=== PATIENT | female | born 1935 | race Caucasian/White ===

== ENCOUNTER 2016-10-25 13:01 | Emergency (ER) | payer MEDICARE, BC ==
[~2016-10-25] VITALS: Ht 152.4 cm; Wt 46.5 kg
[2016-10-25 13:03] VITALS: BP 115/73; PULSE 102; RESP 18; TEMP 97.6; O2SAT 97
[2016-10-25 13:40] VITALS: BP 133/72; PULSE 101; RESP 18; O2SAT 96
[2016-10-25] MEDS ORDERED: IPRASOL INH (13:48)
[2016-10-25] MEDS ORDERED: PROM12.54 PO (13:48)
[2016-10-25] MEDS ORDERED: FURO20TA PO (13:48)
[2016-10-25] MEDS ORDERED: ZYPR7.5T PO (13:48)
[2016-10-25] MEDS ORDERED: CYAN1TAB24 (13:48)
[2016-10-25] MEDS ORDERED: APIX5TAB PO (13:48)
[2016-10-25] MEDS ORDERED: CYMB60CA PO (13:48)
[2016-10-25] MEDS ORDERED: TEMA15CA PO (13:48)
[2016-10-25] MEDS ORDERED: LEVO75TA3 PO (13:48)
[2016-10-25] MEDS ORDERED: OXYC15TA PO (13:48)
[2016-10-25] MEDS ORDERED: LEVE500T11 PO (13:48)
[2016-10-25] MEDS ORDERED: VERA1TAB17 PO (13:48)
[2016-10-25] MEDS ORDERED: FOLI800T PO (13:48)
[2016-10-25] MEDS ORDERED: [UNRECOGNIZED DRUG - CODE] PO (13:48)
[2016-10-25] MEDS ORDERED: SOTA120T PO (13:48)
[2016-10-25] MEDS ORDERED: CHOL1CAP8 PO (13:48)
[2016-10-25] MEDS ORDERED: POTA-245 PO (13:48)
[2016-10-25] MEDS ORDERED: ATOR20TA15 PO (13:48)
[2016-10-25] MEDS ORDERED: MIRA50TA PO (13:48)
--- NOTE | 2016-10-25 13:58 | PD ---
HPI Chief Complaint: Fall Time Seen by Provider: 13:40 Travel History International Travel<30 days: No Contact w/Intl Traveler<30days: No Traveled to known affect area: No History of Present Illness HPI 80-year-old female complains of left knee pain. Patient fell 2 nights ago and hit the back of the head. Patient denies loss of consciousness. Patient denies any headache or neck pain. Patient denies any visual change. Patient denies any chest pain or shortness of breath. Patient denies abdominal pain. Patient complaining of persistent sharp pain localized to left knee. Patient denies any pain radiation. Patient states that the pain is worse with movement of the left knee joint. On a scale of 1-10 the pain is an 8. Patient has history of atrial fibrillation on Eliquis. PFSH Past Medical History Hx Anticoagulant Therapy: Yes (ELIQUIS) Anemia: Yes Atrial Fibrillation: Yes Depression: Yes High Cholesterol: Yes Diabetes: No Respiratory: Yes (COPD) Seizures: Yes Thyroid Disease: Yes Tetanus Vaccination: > 5 Years Influenza Vaccination: Yes ?: Not Past Surgical History Hysterectomy: Yes Social History Alcohol Use: No Tobacco Use: No Allergies-Medications (Allergen,Severity, Reaction): Coded Allergies: Penicillins (Verified Allergy, Unknown, 10/25/16) Sulfa (Sulfonamide Antibiotics) (Verified Allergy, Unknown, 10/25/16) ciprofloxacin (Verified Allergy, Unknown, 10/25/16) Reported Meds & Prescriptions Reported Meds & Active Scripts Active Reported Verapamil ER 24 HR (Verapamil HCl) 240 Mg Tab 240 Mg PO DAILY Temazepam 15 Mg Cap 15 Mg PO HS PRN Sotalol (Sotalol HCl) 120 Mg Tab 120 Mg PO BID Promethazine (Promethazine HCl) 12.5 Mg Tab 12.5 Mg PO Q6H PRN Klor-Con M20 (Potassium Chloride Microencaps) 20 Meq Tab 20 Meq PO DAILY Oxycodone (Oxycodone HCl) 15 Mg Tab 15 Mg PO Q6H PRN Zyprexa (Olanzapine) 7.5 Mg Tab 7.5 Mg PO HS Myrbetriq (Mirabegron) 50 Mg Tab 50 Mg PO DAILY Levothyroxine (Levothyroxine Sodium) 75 Mcg Tab 75 Mcg PO DAILY Levetiracetam ER 24 HR (Levetiracetam) 500 Mg Kareem 500 Mg PO DAILY Lanoxin (Digoxin) 0.0625 Mg Tab 0.0625 Mg PO DAILY Duoneb (Ipratropium-Albuterol Neb) 0.5-2.5 Mg/3 Ml Neb 1 Nebule INH Q6HR NEB Furosemide 20 Mg Tab 20 Mg PO DAILY Folic Acid 0.8 Mg Tab 800 Mcg PO DAILY Eliquis (Apixaban) 5 Mg Tab 5 Mg PO BID Cymbalta DR (Duloxetine HCl) 60 Mg Capdr 60 Mg PO DAILY Vitamin D3 (Cholecalciferol) 400 Unit Cap 400 Units PO DAILY B12 (Cyanocobalamin) 1,000 Mcg Tab Atorvastatin (Atorvastatin Calcium) 20 Mg Tab 20 Mg PO HS Review of Systems General / Constitutional: No: Fever Eyes: No: Visual changes HENT: No: Headaches Cardiovascular: No: Chest Pain or Discomfort Respiratory: No: Shortness of Breath Gastrointestinal: No: Abdominal Pain Genitourinary: No: Dysuria Musculoskeletal: Positive: Pain Skin: No Rash Neurologic: No: Weakness Psychiatric: No: Depression Endocrine: No: Polydipsia Hematologic/Lymphatic: No: Easy Bruising Physical Exam Narrative GENERAL: Well-nourished, well-developed patient. SKIN: Focused skin assessment warm/dry. HEAD: Normocephalic. EYES: No scleral icterus. No injection or drainage. Pupils 3 mm equal reactive. NECK: Supple, trachea midline. No JVD or lymphadenopathy. No neck tenderness on palpation. CARDIOVASCULAR: Regular rate and rhythm without murmurs, gallops, or rubs. RESPIRATORY: Breath sounds equal bilaterally. No accessory muscle use. GASTROINTESTINAL: Abdomen soft, non-tender, nondistended. MUSCULOSKELETAL: Patient has moderate diffuse tenderness over the left knee joint. Limited range of motion left knee secondary to pain. Sensorimotor function distally intact. BACK: Nontender without obvious deformity. No CVA tenderness. Neurologic exam: Patient's awake and alert oriented 3. No obvious focal neurological deficit. Data Data Last Documented VS Vital Signs Date Time Temp Pulse Resp B/P (MAP) Pulse Ox O2 Delivery O2 Flow Rate FiO2 10/25/16 13:40 101 18 133/72 (92) 96 Room Air 10/25/16 13:[address] Brain W/O Iv Contrast(Rout) (10/25/16 13:40) Knee, Complete (4vws) (10/25/16 13:40) [facility] Medical Decision Making Medical Screen Exam Complete: Yes Emergency Medical Condition: Yes Interpretation(s) Last Impressions Knee X-Ray 10/25/16 1340 Signed Impressions: Service Date/Time: Tuesday, October 25, 2016 13:48 - CONCLUSION: No acute abnormality is seen. There is mild narrowing of the medial joint space. Jeyson Hicks MD Head CT 10/25/16 1340 Signed Impressions: Service Date/Time: Tuesday, October 25, 2016 14:02 - CONCLUSION: 1. No acute intracranial abnormality. 2. Atrophy and chronic small vessel ischemic change. Jason Centeno Jr., MD Differential Diagnosis Differential diagnosis including closed head injury, intracranial hemorrhage, left knee sprain versus fracture. Narrative Course 80-year-old female with head injury and left knee injury. Diagnosis Primary Impression: Closed head injury Qualified Codes: S09.90XA - Unspecified injury of head, initial encounter Additional Impression: Left knee sprain Qualified Codes: S83.92XA - Sprain of unspecified site of left knee, initial encounter Patient Instructions: General Instructions Additional Instructions: Ice pack as needed. Tylenol for pain. Follow-up with an orthopedist if persistent problem. Med/Other Pt SpecificInfo: Prescription(s) given Disposition: 01 DISCHARGE HOME Condition: Stable Joe Salinas MD Oct 25, 2016 13:58
--- NOTE | 2016-10-25 14:06 | RADRPT ---
EXAM DATE/TIME: 10/25/2016 13:48 [facility] COMPARISON: No previous studies available for comparison. INDICATIONS : Fell last night on tile floor. Pain on lateral side of knee. MEDICAL HISTORY : None. SURGICAL HISTORY : Hysterectomy. Cholecystectomy. ENCOUNTER: Initial ACUITY: 1 day PAIN SCORE: 10/10 LOCATION: Left Knee. FINDINGS: Four view examination of the left knee demonstrates no evidence of fracture or dislocation. There is some loss of joint space height seen medially. There is a minimal medial osteophyte at the medial tib ial plateau. Bony mineralization is normal. The articular surfaces are intact. The suprapatellar so ft tissues have a normal configuration. CONCLUSION: No acute abnormality is seen. There is mild narrowing of the medial joint space. Jeyson Hicks MD on October 25, 2016 at 14:03 Board Certified Radiologist. This report was verified electronically.
--- NOTE | 2016-10-25 14:23 | RADRPT ---
EXAM DATE/TIME: 10/25/2016 14:02 [facility] COMPARISON: No previous studies available for comparison. INDICATIONS : Trauma, fall last night. RADIATION DOSE: 56.35 CTDIvol (mGy) MEDICAL HISTORY : Seizures. Hypertension. Cardiovascular disease SURGICAL HISTORY : None. ENCOUNTER: Initial ACUITY: 1 day PAIN SCALE: 4/10 LOCATION: cranial TECHNIQUE: Multiple contiguous axial images were obtained of the head. Using automated exposure control and adj ustment of the mA and/or kV according to patient size, radiation dose was kept as low as reasonably a chievable to obtain optimal diagnostic quality images. DICOM format image data is available electro nically for review and comparison. FINDINGS: CEREBRUM: Atrophy. Small chronic lacunar infarction involving the left thalamus. Periventricular low attenuatio n change involving both cerebral hemispheres. The ventricles are normal for age. No evidence of midl ine shift, mass lesion, hemorrhage or acute infarction. No extra-axial fluid collections are seen. POSTERIOR FOSSA: The cerebellum and brainstem are intact. The 4th ventricle is midline. The cerebellopontine angle i s unremarkable. EXTRACRANIAL: The visualized portion of the orbits is intact. SKULL: The calvaria is intact. No evidence of skull fracture. CONCLUSION: 1. No acute intracranial abnormality. 2. Atrophy and chronic small vessel ischemic change. Jason Centeno Jr., MD on October 25, 2016 at 14:15 Board Certified Radiologist. This report was verified electronically.
[2016-10-25 15:00] VITALS: BP 133/72
== END 2016-10-25 16:51 | disposition home or self-care (01) ==
LOC: NEPE 13:01
DX: S09.90XA Unspecified injury of head, initial encounter (principal); S83.92XA Sprain of unspecified site of left knee, initial encounter; W01.198A Fall on same level from slipping, tripping and stumbling with subsequent striking against other object, initial encounter; Y93.01 Activity, walking, marching and hiking
CPT/HCPCS: 70450; 73564